=== PATIENT | male | born 1950 | race Caucasian/White ===

== ENCOUNTER 2022-03-26 08:00 | Outpatient (CLI) | payer OTHER ==
[2022-03-26 16:22] LABS: BASOPHILS # (AUTO) 0.1 10^3/uL (0.0-0.1); BASOPHILS % (AUTO) 0.7 %; EOSINOPHILS # (AUTO) 0.1 10^3/uL (0.0-0.7); EOSINOPHILS % (AUTO) 2.1 %; HCT - HEMATOCRIT 45.5 % (42.0-52.0); HGB - HEMOGLOBIN 15.6 g/dL (14.0-18.0); LYMPHOCYTES # (AUTO) 1.4 10^3/uL (1.5-3.5); LYMPHOCYTES % (AUTO) 20.7 %; MEAN CORPUSCULAR HGB CONC 34.3 g/dL (32.0-36.0); MEAN CORPUSCULAR VOLUME 90.3 fL (80.0-94.0); MEAN PLATELET VOLUME 10.6 fL (7.4-11.4); MONOCYTES # (AUTO) 0.7 10^3/uL (0.0-1.0); MONOCYTES % (AUTO) 9.8 %; NEUTROPHILS # (AUTO) 4.5 10^3/uL (1.5-6.6); NEUTROPHILS % (AUTO) 66.6 %; PLT - PLATELET COUNT 251 10^3/uL (130-450); RED BLOOD COUNT 5.04 10^6/uL (4.70-6.10); WHITE BLOOD COUNT 6.8 x10^3/uL (4.8-10.8)
[2022-03-26 16:41] LABS: PSA TOTAL 1.61 ng/mL (0.000-2.000)
[2022-03-26 16:55] LABS: ALBUMIN 4.1 g/dL (3.2-5.5); ALBUMIN/GLOBULIN RATIO 1.4 (1.0-2.2); ALKALINE PHOSPHATASE 77 IU/L (42-121); ALT ALANINE AMINOTRANSFERASE 17 IU/L (10-60); AST ASPARTATE AMINOTRANSFERASE 21 IU/L (10-42); BUN - BLOOD UREA NITROGEN 16 mg/dL (6-20); CALCIUM 9.2 mg/dL (8.5-10.3); CARBON DIOXIDE - CO2 29 mmol/L (21-32); CHLORIDE 102 mmol/L (101-111); CHOLESTEROL 210 mg/dL; CREATININE 0.9 mg/dL (0.6-1.2); GFR - MDRD 83 (>89); GLUCOSE 91 mg/dL (70-100); HDL CHOLESTEROL 52 mg/dL; LDL CHOLESTEROL,CALCULATED 141 mg/dL; LDL/HDL RATIO 2.7 (<3.6); POTASSIUM 4.2 mmol/L (3.5-5.0); SODIUM 139 mmol/L (135-145); TOTAL PROTEIN 7.1 g/dL (6.7-8.2); TRIGLYCERIDES 84 mg/dL; VLDL CHOLESTEROL 17 mg/dL
[2022-03-27 08:10] LABS: HCV AB <0.1 s/co ratio (0.0-0.9)
== END 2022-03-26 23:59 | disposition home or self-care (01) ==
LOC: LAB.R 08:00
PROVIDERS: ATTEND Internal Medicine
DX: L20.9 Atopic dermatitis, unspecified (principal); L03.90 Cellulitis, unspecified; Z82.49 Family history of ischemic heart disease and other diseases of the circulatory system; R19.5 Other fecal abnormalities; G35 Multiple sclerosis; Z13.6 Encounter for screening for cardiovascular disorders; Z79.899 Other long term (current) drug therapy; Z11.59 Encounter for screening for other viral diseases; R35.0 Frequency of micturition
CPT/HCPCS: 80053; 80061; 83721; 84153; 84443; 85025; 86803

== ENCOUNTER 2022-08-17 14:31 | Outpatient (CLI) | payer OTHER ==
--- NOTE | 2022-08-17 16:37 | Ultrasound Report ---
PROCEDURE: Head or Neck Soft Tissue INDICATIONS: THROMEGALY TECHNIQUE: Real-time scanning was performed of the thyroid gland, with image documentation. COMPARISON: None FINDINGS: Right: Thyroid lobe measures 3.1 x 1.4 x 1.2 cm, and is homogeneous in echotexture. Left: Thyroid lobe measures 4.8 x 1.3 x 1.2 cm, and is homogenous in echotexture. Isthmus: 3 mm thick. Nodule number: 1 Location: Isthmus Size: 1.3 x 0.9 x 1.6 cm. Composition: Predominantly cystic. Echogenicity: Isoechoic (1 point). Shape: wider than tall. Margins: Smooth (0 points). Echogenic foci: Punctate echogenic foci (3 points). Total points: 4 ACR TI-RADS category: Moderately suspicious. IMPRESSION: Solitary thyroid nodule in the isthmus, measuring 1.6 cm in maximum diameter, moderately suspicious by imaging criteria. Based on size and imaging characteristics, ultrasound FNA is recomme nded for tissue diagnosis. Please see chart below. ACR TI-RADS definitions and recommendations: TI-RADS 1 (benign): 0 points. FNA not needed. TI-RADS 2 (not suspicious): 2 points. FNA not needed. TI-RADS 3 (mildly suspicious): 3 points. "FNA if 2.5 cm or larger, follow up if 1.5 cm or larger (at 1, 3, and 5 years). TI-RADS 4 (moderately suspicious): 4-6 points. "FNA if 1.5 cm or larger, follow up if 1 cm or larger (at 1, 2, 3, and 5 years). TI-RADS 5 (highly suspicious): 7 points or more. "FNA if 1 cm or larger, follow up if 0.5 cm or larger (every year for 5 years). Reviewed by: Vick Brenner MD on 08/17/2022 4:36 PM PDT Approved by: Vick Brenner MD on 08/17/2022 4:36 PM PDT Station ID: [id number]
== END 2022-08-17 14:32 | disposition home or self-care (01) ==
LOC: DI 14:31
PROVIDERS: ATTEND Internal Medicine
DX: E04.1 Nontoxic single thyroid nodule (principal)

== ENCOUNTER 2022-09-07 09:38 | Outpatient (CLI) | payer OTHER ==
[2022-09-07] MEDS ORDERED: LIDOCAINE-MPF 1% 5 ML VIAL ONE (10:09)
[2022-09-07] MEDS ORDERED: LIDOCAINE-MPF 1% 5 ML VIAL TD ONE (11:10)
--- NOTE | 2022-09-07 11:18 | Ultrasound Report ---
PROCEDURE: FNA Bx w/US Gdn 1st Les INDICATIONS: TYROID NODULE TECHNIQUE: The indications, alternatives, benefits, risks, and complications of the procedure were explained to the patient. Written informed consent was obtained and placed in the chart. The area of interest wa s examined sonographically and a site was chosen for ultrasound guided percutaneous sampling. The sk in was prepared and draped in the usual fashion, and anesthetized with 1% lidocaine infiltrated from the skin down to the lesion. Multiple passes were then performed, with contents emptied into an appr [facility] pathology specimen container. A bandage was applied to the area of access at completion of t he study. COMPARISON: Thyroid ultrasound 08/17/2022. FINDINGS: Location of lesion sampled: Ist[place]: 25 gauge hypodermic needles. Number of passes: 6 Medications: 1% lidocaine for local anaesthesia. Complications: None. IMPRESSION: Successful ultrasound-guided isthmus thyroid nodule fine needle aspiration, with cytology results joaquin dong. Reviewed by: Brandan Johnson MD on 09/07/2022 11:17 AM PDT Approved by: Brandan Johnson MD on 09/07/2022 11:17 AM PDT Station ID: [id number]
== END 2022-09-07 09:39 | disposition home or self-care (01) ==
LOC: DI 09:38
PROVIDERS: ATTEND Internal Medicine
DX: E04.1 Nontoxic single thyroid nodule (principal)
CPT/HCPCS: 10005

== ENCOUNTER 2023-04-15 15:37 | Outpatient (CLI) | payer MEDICARE ==
[2023-04-15] MEDS ORDERED: iohexoL-300 100 ML VIAL ONE (16:02)
[2023-04-15] MEDS ORDERED: iohexoL-300 100 ML VIAL IVP ONE (16:17)
--- NOTE | 2023-04-15 17:40 | CT Report ---
PROCEDURE: IVP INDICATIONS: HEMATURIA CONTRAST: 140ml omni 300 TECHNIQUE: A [address] of the abdomen and pelvis was performed. Non-contrast and contrast images were recorded and evaluated at appropriate window settings. Images were recorded and evaluated at appropriate windo w settings. Reformats: coronal and sagittal. For radiation dose reduction, the following was used: au tomated exposure control, adjustment of convex left scoliosis. 3 interval casting with improved align ment at the tibia and fibula fractures. MA and/or kV according to patient size. COMPARISON: None. FINDINGS: Image quality: Diagnostic. Urinary system: Both kidneys are normal in size. Nonobstructive 4 mm calculi are present at the lower pole of the right kidney. No left nephrolithiasis. There is mild bilateral perinephric fat stranding . No hydronephrosis. No hydroureter. No ureterolithiasis. Both kidneys demonstrate normal enhancement . The renal collecting systems opacify as expected. No urothelial filling defects where visualized. The bladder is partially fluid-filled. A soft tissue nodule at the base of the bladder likely represe nts an exophytic prostate; however a bladder wall lesion cannot be excluded (series 10/image 126). OTHER Lung bases and heart: Dependent atelectasis is present at the lung bases. Liver: No solid mass. Gallbladder and biliary tree: Spleen: No splenomegaly. Pancreas: No pancreatic ductal dilation. Adrenals: No adrenal nodule. Bowel and peritoneum: No bowel distension. No pathologic free fluid. There are scattered sigmoid colo n diverticular outpouchings. No acute diverticulitis. The appendix is thin-walled and gas-filled. Abdominal Lymph nodes: No central or retroperitoneal adenopathy. Vessels: Unremarkable. Reproductive organs: Unremarkable. Pelvic Lymph nodes: Unremarkable. Bones: No aggressive osseous abnormality. Other: There are small bilateral fat-containing inguinal hernias. IMPRESSION: 1. Nonobstructive right nephrolithiasis. 2. No hydronephrosis, hydroureter, or ureterolithiasis. No suspicious urothelial lesions in the upper tracts. 3. Probable exophytic prostate nodule as described above; however bladder floor lesion cannot be enti rely excluded. Please consider direct visualization. 4. Normal appendix. Diverticulosis. No acute diverticulitis. Reviewed by: Melissa Acosta MD on 04/15/2023 5:38 PM [facility] Approved by: Melissa Acosta MD on 04/15/2023 5:38 PM [facility] Station ID: [id number]
== END 2023-04-15 15:38 | disposition home or self-care (01) ==
LOC: DI 15:37
PROVIDERS: ATTEND Urology
DX: R31.9 Hematuria, unspecified (principal); N20.0 Calculus of kidney; K57.30 Diverticulosis of large intestine without perforation or abscess without bleeding; R93.41 Abnormal radiologic findings on diagnostic imaging of renal pelvis, ureter, or bladder
CPT/HCPCS: 74178; Q9967

== ENCOUNTER 2023-04-25 06:15 | Day surgery (SDC) | payer MEDICARE ==
[2023-04-25] MEDS: LACTATED RINGERS 1,000 ML IV ONE (06:23)
[2023-04-25] MEDS ORDERED: ceFAZolin 2 GM VIAL ONE ×2 (06:47→06:52)
[2023-04-25] MEDS ORDERED: LIDOCAINE 2% URO-JET 5 ML SYRINGE UR ONE (07:06)
[2023-04-25] MEDS ORDERED: iohexoL-240 10 ML VIAL IVP ONE (07:06)
[2023-04-25] MEDS ORDERED: PROPOFOL 200 MG/20 ML VIAL IVP ONE (07:09)
[2023-04-25] MEDS ORDERED: LIDOCAINE-PF 2% 10 ML AMP SUBQ ONE (07:09)
[2023-04-25] MEDS ORDERED: KETOROLAC 30 MG/ML VIAL ONE (07:10)
[2023-04-25] MEDS ORDERED: ONDANSETRON 4 MG/2 ML VIAL ONE (07:10)
[2023-04-25] MEDS ORDERED: fentaNYL 100 MCG/2 ML VIAL ONE (07:11)
[2023-04-25] MEDS: LIDOCAINE 2% URO-JET 5 ML SYRINGE UR ONE (07:13)
--- NOTE | 2023-04-25 07:22 | ANESTHESIA ---
Pre-Anesthesia VS, & Labs - Diagnosis bladder stone - Procedure cysto, laser lithotripsy Vital Signs: Temp Pulse Resp BP Pulse Ox O2 Flow Rate 36 C L 78 20 130/80 96 04/25/23 06:33 04/25/23 06:33 04/25/23 06:33 04/25/23 06:33 04/25/23 06:33 Height: 5 ft 8 in Weight (kg): 81.5 kg Body Mass Index: 27.3 BMI Classification: Overweight - NPO >8 hours Home Medications and Allergies Home Medications: Ambulatory Orders No Known Home Medications 04/20/23 No Known Home Medications 04/20/23 Allergies/Adverse Reactions: Allergies Allergy/AdvReac Type Severity Reaction Status Date / Time formaldehyde Allergy Intermediate Rash Verified 04/25/23 06:56 quaternium 15 Allergy Intermediate Rash Verified 04/25/23 06:57 Anes History & Medical History - Anesthetic History Anesthesia Complications: reports: Slow wake-up Family history of Anesthesia Complications: Denies Family history of Malignant Hyperthermia: Denies - Medical History Cardiovascular: reports: None Pulmonary: reports: None Gastrointestinal: reports: None Urinary: reports: Kidney stones, Other Musculoskeletal: reports: None Endocrine/Autoimmune: reports: None Skin: reports: None Psychosocial: reports: No issues indicated History of Cancer?: No - Surgical History Eyes Ears Nose Throat (EENT): reports: Other (pt reports vocal cord biopsy) Urologic: reports: Ureterolithotomy (stones) Orthopedic: reports: Other Exam General: Alert, Oriented x3, Cooperative Dental: WNL Mouth Openin Fingerbreadth Mallampati classification: III Respiratory: Lungs clear Cardiovascular: Regular rate Plan Anesthesia Type: General Consent for Procedure(s) Verified and Reviewed: Yes Code Status: Attempt Resuscitation ASA classification: 2-Mild systemic disease Is this case an emergency?: No
[2023-04-25] MEDS ORDERED: HYDROmorphone 0.5 MG/0.5 ML SYRINGE IVP PRN (07:31)
[2023-04-25] MEDS ORDERED: ePHEDrine 50 MG/ML VIAL IVP PRN (07:31)
[2023-04-25] MEDS ORDERED: ONDANSETRON 4 MG/2 ML VIAL IVP PRN ×2 (07:31→09:11)
[2023-04-25] MEDS ORDERED: METOCLOPRAMIDE 10 MG/2 ML VIAL IVP PRN (07:31)
[2023-04-25] MEDS ORDERED: ATROPINE ABBOJECT 1 MG/10 ML SYRINGE IVP PRN (07:31)
[2023-04-25] MEDS ORDERED: NALOXONE 0.4 MG/ML VIAL IVP PRN (07:31)
[2023-04-25] MEDS ORDERED: MORPHINE 2 MG/ML CARPUJECT IVP PRN (07:31)
[2023-04-25] MEDS ORDERED: fentaNYL 100 MCG/2 ML VIAL IVP PRN (07:31)
[2023-04-25] MEDS ORDERED: ePHEDrine 50 MG/ML VIAL IVP ONE (07:54)
[2023-04-25] MEDS ORDERED: LACTATED RINGERS 1,000 ML IV SCH (08:00)
[2023-04-25] MEDS: LACTATED RINGERS 300 ML IV ONE ×2 (08:46→09:02)
[2023-04-25 09:03] VITALS: O2SAT 100
[2023-04-25] MEDS ORDERED: HYDROcod/ACETAM 5/325 MG TABLET PO PRN (09:11)
--- NOTE | 2023-04-25 09:15 | Discharge Plan ---
Discharge Plan Problem Reviewed?: Yes Disposition: Home, Self Care Condition: Good Prescriptions: Docusate Sodium 100Mg Capsule [Colace 100Mg Capsule] 100 mg PO DAILY #7 cap HYDROcod/ACETAM 5/325 [[place] 5/325] 1 tab PO Q4H PRN #10 tablet PRN Reason: Pain Diet: Regular Activity Restrictions: No Restrictions Shower Restrictions: No Driving Restrictions: No Additional Instructions or Follow Up instructions: You will be contacted for follow-up with Dr. Kumar in 6 weeks time. No Smoking: If you smoke, Please STOP! Call for help.
[2023-04-25 09:17] VITALS: BP 138/81
--- NOTE | 2023-04-25 09:18 | OPERATIVE REPORT ---
Operative Report - General Planned Procedure: Laser cystolitholapaxy Pre-Op Diagnosis: bladder stone Procedure Performed: Laser cystolitholapaxy stone 1.9cm Post Op Diagnosis: bladder stone - Procedure Note Primary Surgeon: José Anesthesia Provider: CHAR Hoskins Anesthesia Technique: General LMA Pathology: bladder stone Estimated Blood Loss (mL): 1 Indications: 2cm bladder stone Findings: Trilobar hypertrophy 2cm bladder stone Complications: none - Other Other Information/Narrative: After informed consent was obtained the patient was brought to the OR and laid in the supine position. The patient was anesthetized per anesthesia protocols and prepped draped in usual sterile fashion. He was in the dorsolithotomy position. A formal timeout was performed reconfirming the patient and procedure. A 22 [place] cystoscope was advanced easily into the urinary bladder. He had trilobar hypertrophy of the bladder with a mild median lobe. There was a 1.9 cm crystalline appearing stone sitting in the bladder. Using a 272 m laser fiber we dusted the stone into small pieces at a power of 1.0 and a rate of 15. The dust and fragments were irrigated out. Small pieces of stone were grasped using a stone grasper. Some of these were sent for analysis. The bladder was inspected and there were no injuries noted. The bladder was emptied and a Uro- Jet was placed. This included the procedure and the patient tolerated the procedure well. He was brought to the PACU without further incident. He will follow-up in 6 weeks time. All counts were correct
--- NOTE | 2023-04-25 12:18 | ANESTHESIA POST OP EVALUATION ---
Anesthesia Post Eval - Post Anesthesia Eval Vitals: Last Vital Signs Temp 36.5 C 04/25/23 09:03 Pulse 77 04/25/23 09:03 Resp 14 04/25/23 09:03 BP 138/81 H 04/25/23 09:03 Pulse Ox 100 04/25/23 09:03 O2 Flow Rate CV Function Including HR & BP: Stable Pain Control: Satisfactory Nausea & Vomiting: Negative Mental Status: Baseline Respiratory Status: Airway Patent Hydration Status: Satisfactory Anesthesia Complications: None
== END 2023-04-25 06:16 | disposition home or self-care (01) ==
LOC: SDS 06:15
PROVIDERS: ATTEND Urology
DX: N21.0 Calculus in bladder (principal); R31.0 Gross hematuria
CPT/HCPCS: 52317; 82365; C1758; J7120; Q9966

== ENCOUNTER 2023-04-26 08:49 | Emergency (ER) | payer MEDICARE ==
--- NOTE | 2023-04-26 09:47 | ED Physician Documentation ---
PD HPI MALE - Stated complaint Stated Complaint: /POST SURGERY - Chief complaint Chief Complaint: Abd Pain - History obtained from History obtained from: Patient - Additional information Additional information: Patient is a 73-year-old male with removal of bladder stone yesterday by Dr. Kumar presenting for evaluation of difficulty with urination starting last night. He says he did have some blood-tinged urine yesterday. Reports lower abdominal pain. No fever, nausea or vomiting.Does not take a blood thinner. Review of Systems Constitutional: denies: Fever Cardiac: denies: Chest pain / pressure Respiratory: denies: Dyspnea GI: reports: Abdominal Pain. denies: Vomiting, Diarrhea : reports: Unable to Void PD PAST MEDICAL HISTORY - Past Medical History Past Medical History: Yes Cardiovascular: None Respiratory: None Endocrine/Autoimmune: None GI: None : Kidney stones, Other Psych: None Musculoskeletal: None Derm: None - Past Surgical History Past Surgical History: Yes Ortho: Other HEENT: Other - Present Medications Home Medications: Ambulatory Orders Medication Instructions Recorded Confirmed Docusate Sodium 100Mg Capsule 100 mg PO DAILY #7 cap 04/25/23 04/26/23 [Colace 100Mg Capsule] HYDROcod/ACETAM 5/325 [[place] 5/325] 1 tab PO Q4H PRN #10 tablet 04/25/23 04/26/23 Sulfamethox/Trimeth 800/160 1 each PO BID #10 tablet 04/26/23 [Bactrim Ds 800/160] Tamsulosin [Flomax] 0.4 mg PO DAILY #7 cap 04/26/23 - Allergies Allergies/Adverse Reactions: Allergies Allergy/AdvReac Type Severity Reaction Status Date / Time formaldehyde Allergy Intermediate Rash Verified 04/26/23 09:02 quaternium 15 Allergy Intermediate Rash Verified 04/26/23 09:02 - Social History Does the pt smoke?: No Smoking Status: Never smoker Does the pt drink ETOH?: Yes Does the pt have substance abuse?: No - Immunizations Immunizations are current?: Yes - POLST Patient has POLST: No PD ED PE NORMAL - General General: Alert and oriented X 3, No acute distress, Well developed/nourished - HEENT HEENT: Atraumatic, Moist mucous membranes, Pharynx benign - Neck Neck: Supple, no meningeal sign - Cardiac Cardiac: RRR - Respiratory Respiratory: No respiratory distress, Clear bilaterally - Abdomen Abdomen: Normal bowel sounds, Soft, Non distended, Other (Suprapubic tenderness) - Derm Derm: Warm and dry - Neuro Neuro: Normal speech Results - Vitals Vitals: Vital Signs - 24 hr 04/26/23 04/26/23 04/26/23 08:58 09:49 11:01 Temperature 35.4 C L Heart Rate 96 82 77 Respiratory 16 16 15 Rate Blood Pressure 160/65 H 147/88 H 141/75 H O2 Saturation 99 94 99 Oxygen O2 Source Room air - Labs Labs: Laboratory Tests 04/26/23 09:50 Urine Color LT RED Urine Clarity CLOUDY Urine pH 6.5 Ur Specific [place] 1.015 Urine Protein 100 H Urine Glucose (UA) NEGATIVE Urine Ketones 15 H Urine Occult Blood LARGE H Urine Nitrite POSITIVE H Urine Bilirubin SMALL H Urine Urobilinogen 0.2 (NORMAL) Ur Leukocyte Esterase TRACE H Urine RBC TNTC H Urine WBC 0-3 Ur Squamous Epith Cells NONE SEEN Urine Bacteria Few Ur Microscopic Review INDICATED Urine Culture Comments INDICATED PD Medical Decision Making - ED course Complexity details: reviewed results, re-evaluated patient, d/w patient, d/w family ED course: Patient with recent bladder stone removal presenting for evaluation of difficulty with urination since yesterday. Has suprapubic tenderness. Bladder scan shows greater than 500 mL in the bladder. A Branch catheter was placed with significant improvement in his symptoms. Initially bloody urine was noted but this quickly cleared. No fevers. Abdominal exam on repeat is benign. Reviewed with Dr. Kumar who will follow-up with the patient later this week and agrees with plan for short course of antibiotics along with Flomax. Patient counseled on treatment plan, need for close follow-up as well as concerning symptoms to return for. 0945 - Patient reports feeling much better after Branch catheter was placed. There is blood-tinged urine which appears to be clearing patient reports feeling relaxed. 1025 - Discussed with Dr. Kumar. Recommends placing him on 5 days of Bactrim as well as Flomax. His office will reach out to the patient either today or tomorrow morning to schedule a follow-up appointment this week to have the catheter removed in the office. Departure - Departure Disposition: 01 Home, Self Care Clinical Impression: Urinary retention, UTI (urinary tract infection) Condition: Stable Instructions: ED Retention Urinary Male, ED UTI Cystitis Male Follow-Up: Grover Kumar MD [Provider Admit Priv/Credential] - Prescriptions: Sulfamethox/Trimeth 800/160 [Bactrim Ds 800/160] 1 each PO BID #10 tablet Tamsulosin [Flomax] 0.4 mg PO DAILY #7 cap Comments: Dr. Kumar's office will call you today or tomorrow to make a follow-up appointment to have the catheter removed. I sent prescriptions for an antibiotic as well as another medication to take while the catheter is in place to the [facility]. Please make sure to complete the course of the antibiotics for urine infection. Return to the ER with any worsening symptoms such as fever, increased pain, worsening bleeding. Forms: PCP List Discharge Date/Time: 04/26/23 11:11
[2023-04-26 10:08] LABS: BILIRUBIN,URINE SMALL (NEGATIVE); GLUCOSE, URINE (UA) NEGATIVE (NEGATIVE); KETONES,URINE (UA) 15 mg/dL (NEGATIVE); LEUKOCYTE ESTERASE, URINE TRACE (NEGATIVE); NITRITE,URINE POSITIVE (NEGATIVE); OCCULT BLOOD,URINE LARGE (NEGATIVE); PH,URINE 6.5 PH (5.0-7.5); PROTEIN,URINE 100 mg/dL (NEGATIVE); UROBILINOGEN,URINE 0.2 (NORMAL) E.U./dL (NORMAL)
[2023-04-26 10:10] LABS: CLARITY,URINE CLOUDY (CLEAR)
[2023-04-26 10:15] LABS: WBC,URINE 0-3 /HPF (0-3)
[2023-04-26 10:16] LABS: BACTERIA,URINE Few /HPF (None Seen); RBC,URINE TNTC /HPF (0-5); SQUAMOUS EPITHELIAL CELL,UR NONE SEEN (<= Few)
[2023-04-26 11:14] VITALS: BP 141/75; O2SAT 99
== END 2023-04-26 11:11 | disposition home or self-care (01) ==
LOC: ED 08:49
DX: N99.89 Other postprocedural complications and disorders of genitourinary system (principal); R33.9 Retention of urine, unspecified; N39.0 Urinary tract infection, site not specified
CPT/HCPCS: 51702; 81001; 81003; 87086; 99284

== ENCOUNTER 2023-05-08 15:17 | Emergency (ER) | payer MEDICARE ==
--- NOTE | 2023-05-08 15:35 | ED Physician Documentation ---
History of Present Illness - Stated complaint Stated Complaint: - Chief complaint Chief Complaint: Abd Pain - History obtained from History obtained from: Patient - Additonal information Additional information: 73-year-old gentleman with BPH on Flomax and recent bladder stone removal has had trouble with urinary retention since the surgery. Had a catheter removed 2 days ago and was having urinary frequency and really has not been able to pee much at all today. PD PAST MEDICAL HISTORY - Past Medical History Cardiovascular: None Respiratory: None Endocrine/Autoimmune: None GI: None : Kidney stones, Other Psych: None Musculoskeletal: None Derm: None - Past Surgical History Past Surgical History: Yes Ortho: Other HEENT: Other - Present Medications Home Medications: Ambulatory Orders Medication Instructions Recorded Confirmed Tamsulosin [Flomax] 0.4 mg PO DAILY #7 cap 04/26/23 05/08/23 - Allergies Allergies/Adverse Reactions: Allergies Allergy/AdvReac Type Severity Reaction Status Date / Time formaldehyde Allergy Intermediate Rash Verified 05/08/23 15:24 quaternium 15 Allergy Intermediate Rash Verified 05/08/23 15:24 - Social History Does the pt smoke?: No Smoking Status: Never smoker Does the pt drink ETOH?: Yes Does the pt have substance abuse?: No - Immunizations Immunizations are current?: Yes - POLST Patient has POLST: No PD ED PE NORMAL - Vitals Vital signs reviewed: Yes - General General: Alert and oriented X 3, No acute distress - Abdomen Abdomen: Normal bowel sounds, Soft, Non tender - Neuro Neuro: Alert and oriented X 3, Normal speech Eye Opening: Spontaneous Motor: Obeys Commands Verbal: Oriented GCS Score: 15 Results - Vitals Vitals: Vital Signs - 24 hr 05/08/23 15:21 Temperature 36.7 C Heart Rate 85 Respiratory 18 Rate Blood Pressure 156/95 H O2 Saturation 98 Oxygen O2 Source Room air Procedures - General procedure General procedure: I personally placed a 16 [place] standard Branch after iodine prep and drape in standard fashion without difficulty. Departure - Departure Disposition: 01 Home, Self Care Clinical Impression: Urinary retention Condition: Good Record reviewed to determine appropriate education?: Yes Instructions: ED Catheter Care Branch, ED Retention Urinary Male Follow-Up: Grover Kumar MD [Provider Admit Priv/Credential] - Within 1 week
[2023-05-08 16:02] VITALS: BP 150/85; O2SAT 99
== END 2023-05-08 15:58 | disposition home or self-care (01) ==
LOC: ED 15:17
DX: N40.1 Benign prostatic hyperplasia with lower urinary tract symptoms (principal); R33.8 Other retention of urine; Z79.899 Other long term (current) drug therapy
CPT/HCPCS: 51702; 99283

== ENCOUNTER 2023-06-01 11:20 | Outpatient (CLI) | payer MEDICARE | END 2023-06-01 11:21 | disposition home or self-care (01) | LOC: LAB 11:20 | PROVIDERS: ATTEND Urology | DX: R31.9 Hematuria, unspecified (principal); R39.15 Urgency of urination | CPT/HCPCS: 87086 ==